=== PATIENT | male | born 1990 | race Caucasian/White ===

== ENCOUNTER 2024-12-28 21:39 | Outpatient (OUT) | payer OTHER, SELFPAY | END 2024-12-28 21:40 | disposition home or self-care (01) | LOC: SLEEP 21:41 | PROVIDERS: PCP Family Medicine; Visit Provider Family Medicine | DX: G47.33 Obstructive sleep apnea (adult) (pediatric) (principal) | CPT/HCPCS: 95811 ==

== ENCOUNTER 2025-03-15 10:25 | Outpatient (OUT) | payer OTHER, SELFPAY ==
--- OUTSIDE RECORDS SUMMARY | 2025-03-15 10:31 | XMS_ITS | Clinical Summary ---
Author Organization [facility] Address [address], [address] [place] [address] Care Team Providers Care Gardener Name Role Phone Socrates Lynch DO Primary Care Provider [phone] Allergies No known active allergies Medications MedicationSigDispense QuantityRefillsLast FilledStart DateEnd DateStatus Magnesium 400 MG CAPS Take by mouthActive Sheridan-3 Fatty Acids (FISH OIL) 300 MG CAPS Take by mouthActive Probiotic Product (PROBIOTIC BLEND PO) Take by mouthActive fluticasone (FLONASE) 50 MCG/ACT nasal spray 1 spray by Each Nostril route daily as needed for RhinitisActive omeprazole (PRILOSEC) 20 MG delayed release capsule Take 1 capsule by mouth dailyActive Melatonin 10 MG TABS Take 10 mg by mouth nightly as neededActive PREBIOTIC PRODUCT PO Take by mouthActive APPLE CIDER VINEGAR PO Take by mouthActive valsartan-hydroCHLOROthiazide (DIOVAN-HCT) 80-12.5 MG per tablet Indications:Primary hypertensionTake 2 tablets by mouth daily 180 tablet 5Active Active Problems ProblemNoted DateDiagnosed DateOSA (obstructive sleep apnea)01/18/2025 Encounters DateTypeDepartmentCare AepoVmpteqfypbb53/15/2025Orders Only [facility] [address] [place] [address] Socrates Lynch DO 01/27/2025Orders Only [facility] [address] [place] [address] Socrates Lynch DO 01/19/2025Orders Only [facility] [address] [place] [address] ProviderPrimo MD 01/19/2025bstract [facility] [address] [place] [address] Tia Jimenez MA 01/09/2025Orders Only [facility] [address] [place] [address] 20167 Socrates Lynch DO 12/16/2024Telephone [facility] [address] [place] [address] Socrates Lynch DO RX wmwgmyqoblyd39/31/2025Refill [facility] [address] [place] [address] Socrates Lynch DO Medication Refillfrom Last 3 Months Family History Medical HistoryRelationNameCommentsAlcohol AbuseFatherJames McMorrowDeceased, alcoholic (beer)DiabetesMaternal Aunt 1Geraldine HolbrookTreated with insulin, non-compliantObesityMaternal Aunt 1Geraldine HolbrookVision LossMaternal Aunt 1 Nahed HolbrookRelated to DiabetesObesityMaternal Aunt 2Mary KolenoObesity Maternal CousinJacob HolbrookDiabetesMaternal GrandfatherLarry HolbrookTreated with insulin, compliantHeart AttackMaternal GrandfatherLarry HolbrookDecades ago ObesityMaternal GrandfatherLarry HolbrookObesityMaternal UncleLawrence [place] Alcohol AbuseMotherMarlene McMorrowCasual drinker, heavy drinker in her past (beer)Alcohol AbusePaternal GrandfatherClarence McMorrowAlcoholic (beer, liquor) CancerPaternal GrandmotherGenevive McMorrowLung cancer, passed 1993, heavy smokerRelationNameStatusCommentsFatherJames McMorrowAliveMaternal Aunt 1 Nhaed HolbrookAliveMaternal Aunt 2Mary KolenoAliveMaternal CousinJacob HolbrookAliveMaternal GrandfatherLarry HolbrookAliveMaternal UncleLawrence HolbrookAliveMotherMarlene McMorrowAlivePaternal GrandfatherClarence McMorrow AlivePaternal GrandmotherGenevive McMorrowAlive Social History Tobacco UseTypesPacks/DayYears UsedDateSmoking Tobacco: NeverPassive Smoke Exposure: YesSmokeless Tobacco: Never Tobacco Cessation:Counseling Given: No Comments:Live with a cigarette-smoker. Not often in the same room with them. Alcohol UseStandard Drinks/WeekCommentsNever0 (1 standard drink = 0.6 oz pure alcohol)[facility] UtilitiesAnswerDate RecordedIn the past 12 months has the electric, gas, oil, or water [employer] threatened to shut off services in your home?No 10/26/2024PHQ-2AnswerDate RecordedPHQ-9 Total Uesuq804Exercise Vital SignAnswerDate RecordedOn average, how many days per week do you engage in moderate to strenuous exercise (like a brisk walk)?3 days10/23/2024On average, how many minutes do you engage in exercise at this level?20 min10/23/2024Hunger Vital SignAnswerDate RecordedWithin the past 12 months, you worried that your food would run out before you got the money to buymore.Never true10/26/2024 Within the past 12 months, the food you bought just didn't last and you didn't have money to get more.Never true10/26/2024PRAPARE - TransportationAnswerDate RecordedIn the past 12 months, has lack of transportation kept you from medical appointments or from getting medications?No10/26/2024In the past 12 months, has lack of transportation kept you from meetings, work, or from getting things needed for daily living?No10/26/2024Housing Stability Vital SignAnswerDate RecordedIn the last 12 months, was there a time when you were not able to pay the mortgage or rent on time?No10/26/2024In the past 12 months, how many times have you moved where you were living?t any time in the past 12 months, were you homeless or living in a nursing home (including now)?No10/26/2024 Food InsecurityAnswerDate RecordedWithin the past 12 months, you worried that your food would run out before you got the money to buymore.Within the past 12 months, the food you bought just didn't last and you didn't have money to get more.Sex and Gender InformationValueDate RecordedSex Assigned at BirthNot on fileLegal BctTjme8810/11/2024 12:56 PM EDTGender Identity Not on fileSexual OrientationNot on file Last Filed Vital Signs Vital SignReadingTime TakenCommentsBlood Jlbllkop129/78010/26/2024 10:22 AM EDT Fcfhj16500/11/2025 10:04 AM XBDCvejylglefd16.4 ??C (97.6 ??F)10/26/2024 10:04 AM EDTRespiratory Rate--Oxygen Kcrzocnqvi23%10/26/2024 10:04 AM EDTInhaled Oxygen Concentration--Hhzjms481.2 kg (243 lb)10/26/2024 10:04 AM TITSpxgkb534.7 cm (5' 5.25 )10/26/2024 10:04 AM EDTBody Mass Index40.13010/26/2024 10:04 AM EDT Plan of Treatment Health MaintenanceDue DateLast DoneCommentsVaricella vaccine (1 of 2 - 13+ 2- dose series)2002HIV reodag1307/16/2004Hepatitis C uoqhgt4507/17/2007 DTaP/Tdap/Td vaccine (1 - Tdap)2008Hepatitis B vaccine (1 of 3 - 19+ 3- dose series)2008Flu vaccine (#1)12/16/2024OVID-19 Vaccine ( season)2025Depression Kyouwv18, 10/26/2024Diabetes pabqtf81, 10/12/2024A1C test (Diabetic or Prediabetic) Xqyeciasfvhx48/11/2025, 10/12/2024HPV vaccine (No Doses Required)Completed Hepatitis A vaccineAged OutNo longer eligible based on patient's age to complete this topicHib vaccineAged OutNo longer eligible based on patient's age to complete this topicMeningococcal (ACWY) vaccineAged OutNo longer eligible based on patient's age to complete this topicMeningococcal B vaccineAged OutNo longer eligible based on patient's age to complete this topicPneumococcal 0-49 years VaccineAged OutNo longer eligible based on patient's age to complete this topic Polio vaccineAged OutNo longer eligible based on patient's age to complete this topic Procedures Procedure NamePriorityDate/TimeAssociated DiagnosisCommentsHEMOGLOBIN Z8XKlgpkki 01/26/2025 CPAP TITRATION JZFCARxfgveh44/13/2025 8:41 AM EDTfrom Last 3 Months Results * Hemoglobin A1C (01/26/2025)ComponentValueRef RangeTest MethodAnalysis Time Performed AtPathologist SignatureHemoglobin A1C5.1%Estimated Avg Glucose Specimen (Source)Anatomical Location / LateralityCollection Method / Volume Collection TimeReceived TimeBloodBLOOD SPECIMEN / Kiviupo8501/26/2025 Narrative Authorizing ProviderResult TypeResult StatusHistorical Provider MDCHEMISTRY ORDERABLESFinal Result * CPAP Titration Study (12/28/2024 8:41 AM EDT) Narrative Authorizing ProviderResult TypeResult StatusHistorical Provider [facility]LEEP [facility]ENTER ORDERABLESFinal Result from Last 3 Months Insurance Care Teams Team MemberRelationshipSpecialtyStart DateEnd Date Socrates Lynch DO [address] [place] [address] [facility]
--- OUTSIDE RECORDS SUMMARY | 2025-03-15 10:31 | XMS_ITS | Encounter Summary ---
Author Organization [facility] Address [address], [address] [place] [address] Care Team Providers Care Captain Fire [employer] Name Role Phone Socrates Lynch DO Primary Care Provider [phone] Encounter Details DateTypeDepartmentCare Team (Latest Contact Info)Uswwzszjdjk29/15/2025Orders Only [facility] Primary Care [address] [place] [address] Socrates Lynch DO [address] [place] [address] Social History Tobacco UseTypesPacks/DayYears UsedDateSmoking Tobacco: NeverPassive Smoke Exposure: YesSmokeless Tobacco: Never Comments:Live with a cigaret te-smoker. Not often in the same room with them. Alcohol UseStandard Drinks/WeekCommentsNever0 (1 standard drink = 0.6 oz pure alcohol)[facility] UtilitiesAnswerDate RecordedIn the past 12 months has the [employer], gas, oil, or water [employer] threatened to shut off services in your home?No 10/26/2024PHQ-2AnswerDate RecordedPHQ-9 Total Amayh488Exercise Vital SignAnswerDate RecordedOn average, how many days [...] were you homeless or living in a skilled nursing (including now)?No10/26/2024 Food InsecurityAnswerDate RecordedWithin the past 12 months, you worried that your food would run out before you got the money to buymore.Within the past 12 months, the food you bought just didn't last and you didn't have money to get more.Sex and Gender InformationValueDate RecordedSex Assigned at BirthNot on fileLegal CzmZvbj8210/11/2024 12:56 PM EDTGender Identity Not on fileSexual OrientationNot on filedocumented as of this encounter Plan of Treatment Not on file documented as of this encounter Visit Diagnoses Not on filedocumented in this encounter Care Teams Team MemberRelationshipSpecialtyStart DateEnd Date Socrates Lynch DO [address] [place] [address] PCP - GeneralFamily Medicine10/26/24documented as of this encounter
--- OUTSIDE RECORDS SUMMARY | 2025-03-15 10:31 | XMS_ITS | Continuity of Care Document ---
Author Name Herb Francisco Address [address] [place] [id number] Organization Unknown Address [address] [place] [id number] Medications No known medications Problems * Encounter for screening for nutritional, metabolic and other endocrine disorders on:
== END 2025-03-15 10:26 | disposition home or self-care (01) ==
LOC: FHNEUROLOG 10:25
PROVIDERS: PCP Family Medicine; Visit Provider Psychiatry & Neurology Neurology
DX: G47.33 Obstructive sleep apnea (adult) (pediatric) (principal); G47.10 Hypersomnia, unspecified; R06.83 Snoring
CPT/HCPCS: G0463